=== PATIENT | male | born 1990 | race Caucasian/White ===

== ENCOUNTER 2022-06-21 17:51 | Emergency (ER) | payer OTHER ==
[2022-06-21 19:22] LABS: ESTIMATED GFR 102 mL/min (>60)
== END 2022-06-21 19:55 | disposition home or self-care (01) ==
LOC: FB.ED 17:51
DX: R20.2 Paresthesia of skin (principal)
CPT/HCPCS: 36415; 70450; 72128; 72131; 80053; 85025; 99284